=== PATIENT | male | born 1975 | race Caucasian/White ===

== ENCOUNTER 2016-08-24 19:24 | Emergency (ER) | payer SELFPAY ==
[~2016-08-24] VITALS: Ht 172.7 cm; Wt 93.0 kg
[2016-08-24 19:26] VITALS: BP 154/78; PULSE 111; RESP 16; TEMP 97.6; O2SAT 98
[2016-08-24] MEDS ORDERED: CLIN150 PO (19:43)
[2016-08-24] MEDS ORDERED: HYDR-3533 PO (19:43)
[2016-08-24] MEDS ORDERED: ACETAMINOPHEN/HYDROcodone 325 MG/5 MG TAB PO ONE (19:45)
[2016-08-24] MEDS ORDERED: CLINDAMYCIN PHOS 600 MG/4 ML VIAL IM ONE (19:45)
--- NOTE | 2016-08-24 19:51 | PD ---
HPI Chief Complaint: Oral / Dental Pain or Problem Time Seen by Provider: 19:47 Travel History International Travel<30 days: No Contact w/Intl Traveler<30days: No Traveled to known affect area: No History of Present Illness HPI 41-year-old white male presents to emergency Department with complaints of left lower jaw pain and swelling over last 2-3 days. He states that he was instructed by his dentist to come into the ER for evaluation. He states that he has had a dental cavity for some time. He had placed a temporary filling into the tooth a day or 2 before the pain worsen. He denies any fever or chills. No ear pain, sore throat, cough or congestion. Pain is mild-to- moderate. Positive facial swelling. No alleviating or aggravating factors PFSH Past Medical History Narrative Medical Substance abuse on Suboxone Tetanus Vaccination: < 5 Years Past Surgical History Surgical History: No Previous Surgery Social History Alcohol Use: No Tobacco Use: No Allergies-Medications (Allergen,Severity, Reaction): Coded Allergies: No Known Allergies (Unverified , 08/24/16) Reported Meds & Prescriptions Reported Meds & Active Scripts Active Lortab (Hydrocodone-Acetaminophen) 5-325 Mg Tab 1 Tab PO Q8HR PRN Cleocin (Clindamycin HCl) 150 Mg Cap 300 Mg PO Q6H Reported [Suboxone] Review of Systems Except as stated in HPI: all other systems reviewed are Neg Physical Exam Narrative GENERAL: Well-developed, well-nourished in no acute distress. Nontoxic appearing. HEAD: Normocephalic, atraumatic. EYES: Pupils equal round and reactive. Extraocular motions intact. No scleral icterus. No injection or drainage. ENT: TMs clear without erythema. The external auditory canals clear. Nose: clear . Posterior pharynx is pink and moist. No tonsillar edema or exudate. Uvula midline. Airway patent. Patient has mild swelling to the left mandible there is a large dental carry in tooth #19 which has been filled with temporary filling. There is gingival edema and tenderness around the tooth consistent with an abscess. NECK: Trachea midline.Supple, nontender, moves head freely. No central bony tenderness or spasm. CARDIOVASCULAR: Regular rate and rhythm without murmurs, gallops, or rubs. RESPIRATORY: Clear to auscultation. Breath sounds equal bilaterally. No wheezes , rales, or rhonchi. GASTROINTESTINAL: Abdomen soft, non-tender, nondistended. No hepato-splenomegaly , or palpable masses. No guarding. EXTREMITIES: No clubbing, cyanosis, or edema. No joint tenderness, effusion, or edema noted. BACK: Nontender without deformity or crepitance. No flank tenderness. Data Data Last Documented VS Vital Signs Date Time Temp Pulse Resp B/P Pulse Ox O2 Delivery O2 Flow Rate FiO2 08/24/16 19:26 97.6 111 16 154/78 98 Room Air Orders Clindamycin Inj (Cleocin Inj) (08/24/16 19:45) Acetamin-Hydrocod 325-5 Mg ([place] 5-325 (08/24/16 19:45) MDM Medical Decision Making Medical Screen Exam Complete: Yes Emergency Medical Condition: Yes Medical Record Reviewed: Yes Differential Diagnosis MDM: Moderate Differential diagnoses: Dental abscess, dental caries, osteitis, cellulitis Narrative Course Patient's given clindamycin 600 mg IM. Patient now informs the medical staff and myself that he is on Suboxone due to substance abuse. He has declined his Lortab. This is dental abscess Diagnosis Primary Impression: Dental abscess Patient Instructions: General Instructions Additional Instructions: Rest. Saltwater gargles. Marcellus oil on cotton balls. 3 Advil every 6 hours. Clindamycin follow-up with a dentist as soon as possible. And return to the ER if any problems. Med/Other Pt SpecificInfo: Prescription(s) given Scripts Clindamycin (Cleocin)150 Mg [id number] Mg PO Q6H #80 CAP Prov:Cady Dean DO 08/24/16 Disposition: 01 DISCHARGE HOME Condition: Stable Deng aSwyer Aug 24, 2016 19:51
[2016-08-24] MEDS ORDERED: SUBOXONE (19:53)
== END 2016-08-24 20:10 | disposition home or self-care (01) ==
LOC: NED 19:24
DX: K04.7 Periapical abscess without sinus (principal); K02.9 Dental caries, unspecified; F19.20 Other psychoactive substance dependence, uncomplicated; Z79.899 Other long term (current) drug therapy
CPT/HCPCS: 96372